=== PATIENT | female | born 1990 | race Two or more races ===

== ENCOUNTER 2021-05-18 16:30 | Emergency (ER) | payer MEDICAID, OTHER ==
[~2021-05-18] VITALS: Ht 152.4 cm; Wt 52.2 kg
[2021-05-18 17:00] VITALS: BP 101/64
--- NOTE | 2021-05-18 18:00 | NUR ---
called to room in,no answer
--- NOTE | 2021-05-18 19:09 | NUR ---
called thru cell,refused to be seen
== END 2021-05-18 19:10 | disposition left against medical advice (07) ==
LOC: ER 16:39
DX: Z53.21 Procedure and treatment not carried out due to patient leaving prior to being seen by health care provider (principal)

== ENCOUNTER 2022-10-11 19:19 | Emergency (ER) | payer MEDICAID ==
[~2022-10-11] VITALS: Ht 152.4 cm; Wt 58.1 kg
--- NOTE | 2022-10-11 19:58 | NUR ---
Lashaun AOx4, able to express her concerns. U/S tech at bedside. patient with no signs of distress or discomfort. Will f/up to complete assessment.
[2022-10-11 20:00] LABS: BASOPHILS # (AUTO) 0.1 K/uL (0.0-0.2); BASOPHILS % (AUTO) 0.6 % (0.0-2.0); HEMATOCRIT 39 % (33-45); LYMPHOCYTES # (AUTO) 2.8 K/uL (0.8-4.8); LYMPHOCYTES % (AUTO) 28.9 % (20.0-44.0); MEAN CORPUSCULAR HGB CONC 33 g/dl (31.0-36.0); MEAN CORPUSCULAR VOLUME 88 fL (82-100); MONOCYTES # (AUTO) 0.9 K/uL (0.1-1.30); MONOCYTES % (AUTO) 9.3 % (2.0-12.0); NEUTROPHILS # (AUTO) 5.6 K/uL (1.8-8.9); NEUTROPHILS % (AUTO) 57.2 % (43.0-81.0); PLATELET COUNT (AUTO) 305 K/uL (150-450); RED BLOOD CELL COUNT(AUTO) 4.42 MIL/uL (4.0-5.2); WHITE BLOOD COUNT (AUTO) 9.8 K/uL (4.3-11.0)
--- NOTE | 2022-10-11 20:04 | NUR ---
Lashaun states vaginal bleed was before admission. No medical hx. to report, per patient. In bed with no signs of distress. Will continue to monitor.
[2022-10-11 20:23] LABS: CREATININE 0.6 mg/dL (0.6-1.3); POTASSIUM 3.9 mmol/L (3.5-5.1)
[2022-10-11 20:29] LABS: ALBUMIN 3.5 g/dL (3.4-5.0); BILIRUBIN,TOTAL 0.1 mg/dL (0.2-1.0); TOTAL PROTEIN, SERUM 7.6 g/dL (6.4-8.2)
--- NOTE | 2022-10-11 21:18 | NUR ---
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
[2022-10-11] MEDS ORDERED: ACETAMINOPHEN 325 MG TABLET PO ONE (22:00)
[2022-10-11] MEDS ORDERED: ACETAMINOPHEN 325 MG TABLET ONE (22:10)
[2022-10-11 22:24] LABS: BILIRUBIN,URINE NEGATIVE (NEGATIVE); COLOR,URINE YELLOW (YELLOW); LEUKOCYTE ESTERASE ,URINE 2+ (NEGATIVE); NITRITE, URINE NEGATIVE (NEGATIVE); PROTEIN,URINE NEGATIVE (NEGATIVE); UGLUCOSE NEGATIVE (NEGATIVE); UROBILINOGEN,URINE 0.2 EU/dL (0.2)
[2022-10-11 22:36] LABS: BACTERIA,URINE Moderate /HPF (None Seen)
[2022-10-11] MEDS ORDERED: CEPH500T PO (22:57)
--- NOTE | 2022-10-11 23:14 | NUR ---
Patient discharged to home in stable condition. Written and verbal after care instructions given. Patient verbalizes understanding of instruction.
[2022-10-11 23:15] VITALS: BP 121/65
== END 2022-10-11 23:15 | disposition home or self-care (01) ==
LOC: ER 19:20
DX: O20.0 Threatened abortion (principal); O23.41 Unspecified infection of urinary tract in pregnancy, first trimester; N39.0 Urinary tract infection, site not specified; Z3A.12 12 weeks gestation of pregnancy
CPT/HCPCS: 36415; 76805-TC; 80048-TC; 80076-TC; 81001; 84702-TC; 85025-TC; 85730-TC; 87086-TC

== ENCOUNTER 2022-10-16 17:46 | Emergency (ER) | payer MEDICAID ==
[~2022-10-16] VITALS: Ht 152.4 cm; Wt 58.1 kg
[~2022-10-16 17:46] MED LIST: CEPH500T PO
--- NOTE | 2022-10-16 21:00 | NUR ---
PT BIBS C/O VAGINAL BLEEDING. 13 WKS . AAOX4, IN NAD, VITALS CHECKED.
[2022-10-16 21:39] LABS: BASOPHILS # (AUTO) 0.1 K/uL (0.0-0.2); BASOPHILS % (AUTO) 0.5 % (0.0-2.0); EOSINOPHILS % (AUTO) 4.2 % (0.0-6.0); HEMATOCRIT 38 % (33-45); HEMOGLOBIN 12.7 g/dL (11.5-14.8); LYMPHOCYTES # (AUTO) 2.4 K/uL (0.8-4.8); LYMPHOCYTES % (AUTO) 22.3 % (20.0-44.0); MEAN CORPUSCULAR HGB CONC 33 g/dl (31.0-36.0); MEAN CORPUSCULAR VOLUME 89 fL (82-100); MONOCYTES # (AUTO) 0.7 K/uL (0.1-1.30); MONOCYTES % (AUTO) 6.3 % (2.0-12.0); NEUTROPHILS # (AUTO) 7.2 K/uL (1.8-8.9); NEUTROPHILS % (AUTO) 66.7 % (43.0-81.0); PLATELET COUNT (AUTO) 277 K/uL (150-450); RED BLOOD CELL COUNT(AUTO) 4.28 MIL/uL (4.0-5.2); WHITE BLOOD COUNT (AUTO) 10.8 K/uL (4.3-11.0)
--- NOTE | 2022-10-16 21:44 | NUR ---
BLOOD COLLECTED AND SENT TO LAB
--- NOTE | 2022-10-16 22:17 | NUR ---
URINE COLLECTED AND SENT TO LAB
[2022-10-16 22:52] LABS: ALBUMIN 3.4 g/dL (3.4-5.0); BILIRUBIN,TOTAL 0.2 mg/dL (0.2-1.0); CALCIUM, SERUM 9.3 mg/dL (8.5-10.1); CREATININE 0.7 mg/dL (0.6-1.3); POTASSIUM 3.4 mmol/L (3.5-5.1); TOTAL PROTEIN, SERUM 7.5 g/dL (6.4-8.2)
[2022-10-16 23:00] LABS: BILIRUBIN,URINE NEGATIVE (NEGATIVE); COLOR,URINE YELLOW (YELLOW); LEUKOCYTE ESTERASE ,URINE NEGATIVE (NEGATIVE); NITRITE, URINE NEGATIVE (NEGATIVE); PROTEIN,URINE NEGATIVE (NEGATIVE); UGLUCOSE NEGATIVE (NEGATIVE); UROBILINOGEN,URINE 0.2 EU/dL (0.2)
[2022-10-16 23:24] LABS: SQUAMOUS EPITHELIAL CELL,UR Few /HPF (None Seen)
[2022-10-16 23:25] LABS: BACTERIA,URINE Few /HPF (None Seen); MUCUS,URINE Many /LPF (None Seen)
--- NOTE | 2022-10-17 00:33 | NUR ---
Patient discharged to home in stable condition. Written and verbal after care instructions given. Patient verbalizes understanding of instruction.
[2022-10-17 00:34] VITALS: BP 112/60
== END 2022-10-17 00:34 | disposition home or self-care (01) ==
LOC: ER 17:52
DX: O20.0 Threatened abortion (principal); Z3A.13 13 weeks gestation of pregnancy
CPT/HCPCS: 36415; 76805-TC; 80048-TC; 80076-TC; 81001; 84702-TC; 85025-TC; 85730-TC; 87086-TC